=== PATIENT | male | born 1985 | race Caucasian/White ===

== ENCOUNTER 2020-05-14 15:50 | Outpatient (REF) | payer OTHER, SELFPAY | END 2020-05-14 15:51 | disposition home or self-care (01) | LOC: HO.LAB 15:50 | PROVIDERS: Visit Provider Internal Medicine | DX: Z20.822 Contact with and (suspected) exposure to COVID-19 (principal) | CPT/HCPCS: 36415; C9803; U0003 ==

== ENCOUNTER 2020-05-17 00:56 | Emergency (ER) | payer OTHER, SELFPAY ==
[2020-05-17 01:06] VITALS: BP 133/86; PULSE 100; RESP 16; TEMP 36.6; O2SAT 98; BMI 19.2
[2020-05-17 01:48] LABS: MANUAL DIFF FLAG NO
[2020-05-17 01:50] LABS: Basophils Percent Auto 0.1 % (0-2); Eosinophils Percent Auto 0.1 % (0-4); Hematocrit 41.7 % (42-52); Imm Gran Abs Auto 0.02 X10*3/uL (0.00-0.03); Imm Gran Pct Auto 0.2 % (0.0-0.4); Lymphocytes Absolute Auto 1.7 X10*3/uL (1.2-4.9); Lymphocytes Percent Auto 17.1 % (20-40); Mean Corpuscular Hemoglobin 32.1 pg (27.0-33.0); Mean Corpuscular Volume 89.3 fL (80-98); Mean Platelet Volume 9.8 fL (9.4-12.4); Monocytes Absolute Auto 0.4 X10*3/uL (0.1-1.2); Monocytes Percent Auto 3.9 % (2-11); Neutrophils Absolute Auto 7.7 X10*3/uL (2.0-8.3); Neutrophils Percent Auto 78.6 % (45-73); Platelet Count 209 X10*3/uL (160-400); Red Blood Count 4.67 X10*6/uL (4.60-5.80); Red Cell Distribution Width 11.3 % (11.0-16.0); White Blood Count 9.7 X10*3/uL (4.8-10.8)
[2020-05-17 01:57] LABS: Glucose Urine UA NEG (NEG); Leukocyte Esterase Urine NEG (NEG); Nitrite Urine NEG (NEG); Specific Gravity - Urine 1.025 (1.005-1.025); Urine Blood NEG (NEG); Urine Ketones NEG (NEG); Urine Protein NEG (NEG-TRACE)
[2020-05-17 01:58] LABS: Color Urine YELLOW
[2020-05-17 01:59] LABS: Appearance Urine CLOUDY
[2020-05-17 02:14] LABS: Alanine Aminotransferase 10 U/L (0-40); Alkaline Phosphatase 73 U/L (39-117); Anion Gap 17 (12-20); Aspartate Amino Transferase 15 U/L (5-37); Bilirubin Total 1.5 mg/dL (0.0-1.0); Blood Urea Nitrogen 17 mg/dL (9-16); Calcium 9.7 mg/dL (8.4-10.2); Carbon Dioxide 25 mmol/L (22-29); Chloride 105 mmol/L (96-108); Creatinine Clr Calc Pharmacy 84.2; Estimated Glomerular Filt Rate > 60; Glucose Random 120 mg/dL (60-115); Lipase 14 U/L (8-78); Potassium 3.5 mmol/l (3.3-5.1); Sodium 143 mmol/L (135-145); Total Protein 7.9 g/dL (6.5-8.0)
[2020-05-17 05:41] VITALS: BP 117/88; PULSE 62; RESP 16; TEMP 36.7; O2SAT 99
--- NOTE | 2020-05-17 05:45 | PC.NURSE ---
Pt is CAOx4, speaking full sentences, ambulating with a bhakta/steady gait from the waiting room into room 13. Pt explains that he had a s/o of a pain to his RLQ around 2300 last night. Pt states that the pain subsided but now feels tight. Pt states that he had an appendectomy several years ago. Pt also explains that he is very anxious and has had many personal stressors recently. Pt explains he had to move out because of anxiety and depression. Pt states that when he returned home, his kids were gone so he is now sleeping on his dads couch. Pt reports thinning of his hair and some possible weight loss. Pt denies drugs/alcohol. Pt denies any recent visits with his PCP, states he does not have a PCP. Pt denies taking any antidepressants/anti anxiety medications. Pt states I know this anxiety and depression is wearing on my body and is causing damage. Pt denies SI at this time. Labs and urine obtained in Triage. Awaiting primary MD mendoza. VSS. Continue to monitor.
--- NOTE | 2020-05-17 06:33 | ED.ABDPAIN ---
HPI - Abdominal Pain General Chief Complaint: Abdominal Pain Stated Complaint: ABD PAIN Time Seen by Provider: 05/17/20 06:33 Source: patient Mode of arrival: ambulatory History of Present Illness HPI narrative: This is a 35-year-old male with self-reported history of anxiety who presents with feeling anxious and then he began to hyperventilate and then noticed that he had a sharp pain, nonradiating, in the right lower abdomen that was not associated with nausea, vomiting, fevers, chills and he is status post appendectomy. In addition, patient reports diarrheal episodes for 3 days, nonbloody, green in nature. Related Data Allergies Allergy/AdvReac Type Severity Reaction Status Date / Time No Known Allergies Allergy Verified 05/17/20 01:05 Review of Systems Review of Systems Pertinent positives and negatives as stated in HPI 10 point review of systems is otherwise negative. Physical Exam Vital Signs: Vital Signs: Last Vital Signs Temp 98.0 F 05/17/20 05:41 Pulse 62 05/17/20 05:41 Resp 16 05/17/20 05:41 BP 117/88 05/17/20 05:41 Pulse Ox 99 05/17/20 05:41 Body Mass Index 19.2 VITAL SIGNS: Reviewed. GENERAL: Well developed, well nourished, mildly anxious. NOSE: Nares patent bilateral OROPHARYNX: no oral lesions noted, posterior pharynx clear NECK: Supple, no adenopathy LUNGS: Normal breath sounds. No adventitious sounds or accessory muscle use. SpO2<98> CARDIOVASCULAR: Regular rate and rhythm without noted murmurs, ABDOMEN: Soft, non-tender, non-distended with bowel sounds. NEUROLOGIC: Alert and oriented x 4. Strength and sensation to light touch were grossly intact x 4. Course Course Course Narrative: This is a 35-year-old male with history and clinical presentation consistent with anxiety and no evidence to suggest acute intra-abdominal pathology. On review of all investigations there is no evidence of acute abnormalities, urinalysis is negative for infection. And patient is currently asymptomatic and no longer has pain. Discussed with patient the importance of establishing care with a primary care provider for further outpatient evaluation, increase fluid hydration, and was discharged to home in stable condition. MDM - Abdominal Pain Lab Data Result diagrams: 05/17/20 01:41 05/17/20 01:41 Labs: Lab Results 0105/17/20 05/17/20 Range/Units 01:41 01:41 01:41 WBC 9.7 (4.8-10.8) X10*3/uL RBC 4.67 (4.60-5.80) X10*6/uL Hgb 15.0 (14.0-18.0) g/dl Hct 41.7 L (42-52) % MCV 89.3 (80-98) fL MCH 32.1 (27.0-33.0) pg MCHC 36.0 (31.0-36.0) g/dl RDW 11.3 (11.0-16.0) % Plt Count 209 (160-400) X10*3/uL MPV 9.8 (9.4-12.4) fL Immature Gran % (Auto) 0.2 (0.0-0.4) % Neut % (Auto) 78.6 H (45-73) % Lymph % (Auto) 17.1 L (20-40) % [place] % (Auto) 3.9 (2-11) % Eos % (Auto) 0.1 (0-4) % Baso % (Auto) 0.1 (0-2) % Lymph # (Auto) 1.7 (1.2-4.9) X10*3/uL [place] # (Auto) 0.4 (0.1-1.2) X10*3/uL Eos # (Auto) 0.0 (0.0-0.4) X10*3/uL Baso # (Auto) 0.0 (0.0-0.2) X10*3/uL Abs Immat Gran (auto) 0.02 (0.00-0.03) X10*3/uL Absolute Neuts (auto) 7.7 (2.0-8.3) X10*3/uL Absolute Nucleated RBC 0.000 (0.0-0.012) X10*3/uL Nucleated RBC % (auto) 0.0 (0.0-0.2) /100WBC Hold Blue Top SEE NOTE Sodium 143 (135-145) mmol/L Potassium 3.5 (3.3-5.1) mmol/l Chloride 105 (96-108) mmol/L Carbon Dioxide 25 (22-29) mmol/L Anion Gap 17 (12-20) BUN 17 H (9-16) mg/dL Creatinine 1.04 (0.5-1.4) mg/dL Estim Creat Clear Calc 84.2 Estimated GFR > 60 Random Glucose 120 H (60-115) mg/dL Calcium 9.7 (8.4-10.2) mg/dL Total Bilirubin 1.5 H (0.0-1.0) mg/dL AST 15 (5-37) U/L ALT 10 (0-40) U/L Alkaline Phosphatase 73 (39-117) U/L Total Protein 7.9 (6.5-8.0) g/dL Albumin 5.0 (3.5-5.0) g/dL Lipase 14 (8-78) U/L Urine Color Urine Appearance Urine pH (5.0-8.0) Ur Specific [place] (1.005-1.025) Urine Protein (NEG-TRACE) MG/DL Urine Glucose (UA) (NEG) MG/DL Urine Ketones (NEG) MG/DL Urine Blood (NEG) Urine Nitrite (NEG) Ur Leukocyte Esterase (NEG) 05/17/20 Range/Units 01:41 WBC (4.8-10.8) X10*3/uL RBC (4.60-5.80) X10*6/uL Hgb (14.0-18.0) g/dl Hct (42-52) % MCV (80-98) fL MCH (27.0-33.0) pg MCHC (31.0-36.0) g/dl RDW (11.0-16.0) % Plt Count (160-400) X10*3/uL MPV (9.4-12.4) fL Immature Gran % (Auto) (0.0-0.4) % Neut % (Auto) (45-73) % Lymph % (Auto) (20-40) % [place] % (Auto) (2-11) % Eos % (Auto) (0-4) % Baso % (Auto) (0-2) % Lymph # (Auto) (1.2-4.9) X10*3/uL [place] # (Auto) (0.1-1.2) X10*3/uL Eos # (Auto) (0.0-0.4) X10*3/uL Baso # (Auto) (0.0-0.2) X10*3/uL Abs Immat Gran (auto) (0.00-0.03) X10*3/uL Absolute Neuts (auto) (2.0-8.3) X10*3/uL Absolute Nucleated RBC (0.0-0.012) X10*3/uL Nucleated RBC % (auto) (0.0-0.2) /100WBC Hold Blue Top Sodium (135-145) mmol/L Potassium (3.3-5.1) mmol/l Chloride (96-108) mmol/L Carbon Dioxide (22-29) mmol/L Anion Gap (12-20) BUN (9-16) mg/dL Creatinine (0.5-1.4) mg/dL Estim Creat Clear Calc Estimated GFR Random Glucose (60-115) mg/dL Calcium (8.4-10.2) mg/dL Total Bilirubin (0.0-1.0) mg/dL AST (5-37) U/L ALT (0-40) U/L Alkaline Phosphatase (39-117) U/L Total Protein (6.5-8.0) g/dL Albumin (3.5-5.0) g/dL Lipase (8-78) U/L Urine Color YELLOW Urine Appearance CLOUDY Urine pH 8.0 (5.0-8.0) Ur Specific [place] 1.025 (1.005-1.025) Urine Protein NEG (NEG-TRACE) MG/DL Urine Glucose (UA) NEG (NEG) MG/DL Urine Ketones NEG (NEG) MG/DL Urine Blood NEG (NEG) Urine Nitrite NEG (NEG) Ur Leukocyte Esterase NEG (NEG) Discharge Plan Discharge Clinical Impression: Anxiety Abdominal pain Qualifiers: Abdominal location: right lower quadrant Qualified Code(s): R10.31 - Right lower quadrant pain Patient Disposition: Home, Self-Care Instructions: Abdominal Pain (ED), Anxiety (ED) Additional Instructions: 1. Please increase your fluid hydration especially with water. 2. Please start the process for stab listing a primary care provider by applying for [employer]. Do not hesitate to return the emergency department should you experience any worsening or new symptoms. [facility] Past Medical History Source: nursing notes reviewed Surgical History History of appendectomy Social History Social History Advance Directives: No Advance Directives Information Provided: No
== END 2020-05-17 06:45 | disposition home or self-care (01) ==
PROVIDERS: Emergency Provider Student in an Organized Health Care Education/Training Program
DX: R10.31 Right lower quadrant pain (principal); F41.1 Generalized anxiety disorder; F43.0 Acute stress reaction
CPT/HCPCS: 36415; 80053; 81003; 83690; 85025; 99283; 99284

== ENCOUNTER 2024-03-20 22:00 | Emergency (ER) | payer MEDICAID, SELFPAY ==
[2024-03-20 22:09] VITALS: BP 106/74; PULSE 77; RESP 18; TEMP 36.9; O2SAT 99; BMI 23.5
--- NOTE | 2024-03-21 00:57 | ED.SKABFB ---
HPI - Skin/Abscess/Foreign Bdy General Chief complaint: Skin/Abscess/Foreign Body Stated complaint: Rash Time Seen by Provider: 03/20/24 23:52 History of Present Illness HPI narrative: Patient is a 38-year-old male presented today with having a diffuse rash over his chest over his arm that is been ongoing for about 2 weeks. Initially it was itchy in the arm then it became mostly over the abdomen and in the back. There is no fever no chills. There is no change in diet. There is no nausea no vomiting no systemic complaints. Patient is from home. There has been no change in his diet. No change in his environment. No new partners. Patient is from home. No travel history. No recent antibiotics. No recent medications. Never had similar symptoms in the past. Related Data Previous Rx's ?Medication ?Instructions ?Recorded prednisone 20 mg tablet 40 mg (2 x 20 mg) PO DAILY #10 tabs 03/21/24 Allergies Allergy/AdvReac Type Severity Reaction Status Date / Time No Known Allergies Allergy Verified 03/20/24 22:12 Review of Systems Review of Systems: Positive rash over the abdomen and back, arms. No mucosal membrane involvement. Yes all other systems are reviewed and are negative PMFSH Past Medical History Attestation statement: The following information was validated with the patient. Surgical History History of appendectomy Social History Social History Advance Directives: No Physical Exam Vital Signs: Vital Signs: Last Vital Signs Temp 98.5 F 03/20/24 22:09 Pulse 77 03/20/24 22:09 Resp 18 03/20/24 22:09 BP 106/74 03/20/24 22:09 Pulse Ox 99 03/20/24 22:09 O2 Del Method Room Air 03/20/24 22:09 BMI result Body Mass Index 23.5 Appearance: Alert. Oriented X3. No acute distress. Eyes: Pupils equal, round and reactive to light. ENT: Pharynx normal. Neck: Normal inspection. Neck supple. No lymph nodes noted. No crepitus CVS: Normal heart rate and rhythm. Pulses normal. Normal S1 and S2 Respiratory: No respiratory distress. Breath sounds normal. No Wheezing. No rales Abdomen: Soft and nontender. No rigidity. No distention. good BS x4 Skin: Diffuse rash over the abdomen and back it seems to be up erythematous oval in shape blanches nontender to touch there is no mucosal membrane involvement. There is no involvement of the upper back of the lower extremity. Extremities: No lower extremity edema. Neurovascular intact to all extremities. No Lacerations. No Rash Neuro: Oriented X 3. No motor deficit. No sensory deficit. Moving all extermities. No slurred speech Medical Decision Making Medical Decision Making MDM Narrative: Less likely allergic in nature there has been no change in her environment. Patient is well-appearing. Question viral rash. Question eczema versus syphilis versus pityriasis rosacea. Given patient's overall well appearance. Unlikely secondary to [place] as there is no mucosal membrane involvement. Elected to start patient on steroid. Close follow-up with primary on an outpatient basis. Syphilis titer was spent sent Differential Diagnosis Differential Diagnoses: The differential diagnosis associated with the presentation includes Allergic reaction, viral infection, syphilis Admission/Observation Consideration of admission/observation: Escalation of care including admission/observation considered Independent Historian Clinical information obtained from an independent historian. History obtained from or confirmed by: Friend Prescription Management I considered prescription management with: Antibiotic Steroid was given Discharge Plan Discharge Clinical Impression: Viral exanthem, Pityriasis rosea Patient Disposition: Home, Self-Care Instructions: Pityriasis rosea (ED), Viral Exanthem (ED) Prescriptions: New prednisone 20 mg tablet 40 mg PO DAILY Qty: 10 0RF Referrals: [facility] [Provider Group] Print Language: Chinese
[2024-03-21] MEDS: predniSONE 20 MG TABLET 40 MG PO (01:19)
[2024-03-21 01:32] VITALS: BP 101/72; PULSE 72; RESP 16; TEMP 37.1; O2SAT 100
[2024-03-21 03:38] LABS: Syphilis Screen Nonreactive (Nonreactive)
== END 2024-03-21 01:35 | disposition home or self-care (01) ==
PROVIDERS: Emergency Provider Emergency Medicine Emergency Medical Services
DX: B09 Unspecified viral infection characterized by skin and mucous membrane lesions (principal); L42 Pityriasis rosea
CPT/HCPCS: 36415; 86780; 99282; 99283